=== PATIENT | female | born 1945 | race Caucasian/White ===

== ENCOUNTER → 2016-08-16 | Outpatient (CLI) | payer OTHER | LOC: BRMIMAGING 09:06 | PROVIDERS: ATTEND Internal Medicine | DX: M81.0 Age-related osteoporosis without current pathological fracture (principal) ==

== ENCOUNTER 2017-05-19 20:27 | Emergency (ER) | payer OTHER ==
--- NOTE | 2017-05-19 21:53 | CPEKG ---
Heart Rate: 78 RR Interval: 769 P-R Interval: 180 QRSD Interval: 90 QT Interval: 396 QTC Interval: 452 P Lawrence: 81 QRS Lawrence: 41 T Wave Lawrence: 39 EKG Severity - BORDERLINE ECG - EKG Impression: SINUS RHYTHM EKG Impression: PROBABLE LEFT ATRIAL ABNORMALITY EKG Impression: BORDERLINE R WAVE PROGRESSION, ANTERIOR LEADS Electronically Signed By: Miladys Thayer 19-May-2017 23:17:14
--- NOTE | 2017-05-19 22:12 | EDPHY ---
H & P Time Seen by Provider: 05/19/17 21:39 HPI/ROS: CHIEF COMPLAINT: Left-sided neck pain HISTORY OF PRESENT ILLNESS: 71-year-old female with CAD presents with left- sided neck pain. At 4:00 p.m. today, she developed a tenderness over her left carotid artery. She looked in the mirror and noticed that the carotid artery was more prominent than usual. She has been concerned about her left carotid artery for years because it has been quite prominent. She became very concerned and anxious, then noticed that her blood pressure was elevated. She took an aspirin and lisinopril and now the symptoms have completely resolved. No associated sx and no prior similar sx. REVIEW OF SYSTEMS: Constitutional: No fever, no chills Eyes: No visual changes ENT: No sore throat Respiratory: No cough, no shortness of breath Cardiac: No chest pain Gastrointestinal: no vomiting, no abdominal pain Genitourinary: no dysuria Musculoskeletal: No leg pain or swelling Skin: No rash Neurological: No headache, no numbness, no weakness Psychiatric: Anxiety Past Medical/Surgical History: CAD Social History: Smoking Status: Never smoked Physical Exam: General Appearance: Alert, pleasant Eyes: Pupils equal and round, no conjunctival pallor or injection ENT, Mouth: Mucous membranes moist Neck: Normal inspection, left carotid artery is palpable, nontender and of normal caliber; the remainder of the neck exam is normal and NT Respiratory: Lungs are clear to auscultation Cardiovascular: Regular rate and rhythm Gastrointestinal: Abdomen is soft and nontender Neurological: A&O, nonfocal, normal gait Skin: Warm and dry, no rash Extremities: Normal inspection Psychiatric: anxious Constitutional: Initial Vital Signs Temperature (C) 36.6 C 05/19/17 20:30 Heart Rate 89 05/19/17 20:30 Respiratory Rate 16 05/19/17 20:30 Blood Pressure 189/86 H 05/19/17 20:30 O2 Sat (%) 96 05/19/17 20:30 O2 Delivery Mode Room Air Allergies/Adverse Reactions: montelukast sodium [From Singulair] Allergy (Unknown, Verified 12/31/15 09:59) budesonide [From Symbicort] Allergy (Verified 12/31/15 06:42) formoterol fumarate [From Symbicort] Allergy (Verified 12/31/15 06:42) Home Medications: Medication Instructions Recorded Alirocumab [Praluent Pen] 150 mg SQ Q14D 12/31/15 Ascorbic Acid [Vitamin C 500 mg 500 mg PO DAILY@12 12/31/15 (*)] Aspirin [Aspirin 81mg (*)] 81 mg PO DAILY 12/31/15 Cyanocobalamin [Vitamin B12 (*)] 100 mcg PO DAILY@12 12/31/15 Herbals/Supplements -Info Only 1 ea PO DAILY 12/31/15 Mometasone/Formoterol [Dulera 100 2 puffs IH BID 12/31/15 Mcg/5 Mcg Inhaler] Ticagrelor [Brilinta] 90 mg PO BID #60 tab 01/01/16 Lisinopril 05/19/17 Proair Hfa 05/19/17 Medical Decision Making - Diagnostics EKG Interpretation: EKG interpreted by me reveals normal sinus rhythm, rate 78, borderline R-wave progression, no ST or T segment changes. Interpretation: Borderline EKG ED Course/Re-evaluation: This pt presents with a concern about her carotid artery. Physical exam is normal and I do not feel than imaging is indicated today. EKG performed and reveals no evidence of ischemia; clinically I do not suspect cardiac etiology, given localizing signs/sx to left carotid. Pt advised to f/u with PCP for outpt carotid sono. Departure - Departure Disposition: Home, Routine, Self-Care Clinical Impression: Neck pain Condition: Good Instructions: Neck Pain (ED) Additional Instructions: Return for recurrent symptoms or any concerns. Referrals: Kayli Cooper MD [Primary Care Provider] - As per Instructions (Keep your appointment with Dr. Cooper. )
[2017-05-19 22:20] VITALS: BP 164/82
== END 2017-05-19 22:19 | disposition home or self-care (01) ==
DX: M54.2 Cervicalgia (principal); I25.10 Atherosclerotic heart disease of native coronary artery without angina pectoris; Z79.82 Long term (current) use of aspirin

== ENCOUNTER → 2017-10-29 | Outpatient (CLI) | payer OTHER | LOC: BHCLAF 10:45 | PROVIDERS: ATTEND Internal Medicine Cardiovascular Disease | DX: I25.10 Atherosclerotic heart disease of native coronary artery without angina pectoris (principal) | CPT/HCPCS: 93306-PO ==

== ENCOUNTER → 2018-07-16 | Outpatient (CLI) | payer OTHER | LOC: EMCIMAGING 08:56 ==